=== PATIENT | female | born 1980 | race Caucasian/White ===

== ENCOUNTER 2017-11-18 07:02 | Emergency (ER) | payer OTHER ==
[2017-11-18 07:15] VITALS: RESP 16; TEMP 98.6
--- NOTE | 2017-11-18 07:34 | CPEKG ---
Heart Rate: 78 RR Interval: 769 P-R Interval: 123 QRSD Interval: 80 QT Interval: 388 QTC Interval: 442 P [place]: 0 QRS [place]: 68 T Wave [place]: 13 EKG Severity - NORMAL ECG - EKG Impression: SINUS RHYTHM Electronically Signed By: Cy Sosa 18-Nov-2017 14:47:04
--- NOTE | 2017-11-18 07:42 | EDPHY ---
HPI/HX/ROS/PE/MDM Narrative: CHIEF COMPLAINT: Chest/abdominal/back pain HPI: The patient is a 37 y/o female complaining of acute onset abdominal pain that woke her from sleep 3.5 hours ago. She says, "at 4 o'clock I woke up with really severe upper abdominal pain." Her pain then spread to her left anterior chest and then to her entire back. She could not find a comfortable position or identify any alleviating factors. Her pain was constant for two hours, sharp in quality and associated with mild dyspnea and nausea, but no vomiting. Pressure on her abdomen seemed to worsen her pain. She's had some reflux in the past and states her symptoms today feel different. Her pain has improved since arriving in the ED. She felt normal last night and ate a standard meal with a glass of wine. She denies sensation of esophageal foreign body since her meal. She has no personal history or history in a 1st degree relative of cardiac disease, gallbladder disease, or respiratory disease. No abdominal surgical history. REVIEW OF SYSTEMS: Aside from elements discussed in the HPI, a comprehensive 10-point review of systems was reviewed and is negative. PMH: Shoulder surgery, breast augmentation tonsillectomy FAMILY HISTORY: Grandmother had 12 heart attacks. SOCIAL HISTORY: Works as a realtor. Lives in [place]. , at bedside. PHYSICAL EXAM: General:Patient is alert, in no acute distress. ENT:Eyes are normal to inspection. ENT inspection normal. Neck: Normal inspection. Full range of motion. Respiratory:No respiratory distress. Breath sounds normal bilaterally. Cardiovascular: Regular rate and rhythm. Strong peripheral pulses. Normal cap refill. Abdomen:The abdomen has RLQ tenderness to palpation. There are no peritoneal signs. There are normal bowel sounds. Back: Normal to inspection. No tenderness to palpation. Skin: Normal color. No rash. Warm and dry. Extremities: Normal appearance. Full range of motion. Neuro: Oriented x3. Normal motor function. Normal sensory function. ED Course: This is a normally healthy 37 y/o female who presents with a 3.5-hour history of acute abdominal pain that woke her from sleep and now involves her chest and back. However, on exam she has RLQ tenderness and no epigastric tenderness or reproducible chest tenderness. Presentation could indicate gallbladder issue, reflux, or appendicitis. Cardiac etiology less likely as patient has no reported risk factors for cardiac event. Plan for IV, labs, UA, EKG, chest x- ray. I offered PO GI cocktail, but patient does not think her symptoms feel like reflux and declined it. 1L IV NS and 4mg IV Zofran administered. The 12 lead EKG was interpreted by myself. Sinus mechanism rate 78. See hard copy and/or "tracemaster" electronic copy for interpretation. 0748: HR 48, BP 82/40 after IV placement. RN reported vasovagal symptoms. Repeat EKG ordered. The 12 lead EKG was interpreted by myself. Sinus mechanism rate 56. See hard copy and/or "tracemaster" electronic copy for interpretation. 0800: BP and HR are trending towards initial readings. 0835: Reevaluated patient. She reports her symptoms have improved, but she continues to have tenderness in the RLQ. I've recommended a CT to evaluate for appendicitis or other intraabdominal process, which she agrees to. 0920: Abdominal CT shows small amount of fluid RUQ, normal appendix, constipation. Plan for RUQ US to evaluate gallbladder. UA and US are negative. MDM: This patient presents with atypical abdominal pain and tenderness. We performed an extensive workup, including CTAP, US and lab work, and no etiology for these symptoms was identified. I see no evidence of cholecystitis, bowel obstruction , appendicitis, diverticulitis, pancreatitis or GI bleed. Given negative workup , this may represent an ulcer or other GI issue - I think the next logical step would be outpatient GI consultation. On re-evaluation, patient's abdomen is benign, she is comfortable and her vitals are normal. She agrees with plan for discharge home in setting of strict return precautions. - Data Points Imaging Results: Imaging Impressions Chest X-Ray 11/18/17 07:37 Impression: Chest negative for acute abnormality. Abdomen CT 11/18/17 08:36 Impression: 1. Moderate stool in the colon 2. Trace free fluid near the liver with no definite etiology, of questionable clinical significance. 3. Additional findings as above. Findings discussed with Cy Sosa MD on 11/18/2017 at 9:19 a.m. Abdomen Ultrasound 11/18/17 09:23 Impression: Normal right upper quadrant ultrasound. Findings discussed with Cy Sosa MD at 9:59 hour, 11/18/2017. Imaging: Discussed imaging studies w/ director call Radiologist, I viewed and interpreted images myself Laboratory Results: Laboratory Results 11/18/17 07:30 11/18/17 07:30 11/18/17 11/18/17 11/18/17 09:21 07:30 07:30 WBC RBC Hgb Hct MCV MCH MCHC RDW Plt Count MPV Neut % (Auto) Lymph % (Auto) Porter % (Auto) Eos % (Auto) Baso % (Auto) Nucleat RBC Rel Count Absolute Neuts (auto) Absolute Lymphs (auto) Absolute Monos (auto) Absolute Eos (auto) Absolute Basos (auto) Absolute Nucleated RBC Immature Gran % Immature Gran # Sodium 142 mEq/L mEq/L (135-145) Potassium 4.5 mEq/L mEq/L (3.5-5.2) Chloride 103 mEq/L mEq/L (97-110) Carbon Dioxide 26 mEq/l mEq/l (22-31) Anion Gap 13 mEq/L mEq/L (8-16) BUN 21 mg/dL mg/dL (7-23) Creatinine 0.8 mg/dL mg/dL (0.6-1.0) Estimated GFR > 60 Glucose 80 mg/dL mg/dL (70-100) Calcium 9.7 mg/dL mg/dL (8.5-10.4) Total Bilirubin 0.7 mg/dL mg/dL (0.1-1.4) Conjugated Bilirubin 0.2 mg/dL mg/dL (0.0-0.5) Unconjugated Bilirubin 0.5 mg/dL mg/dL (0.0-1.1) AST 30 IU/L IU/L (14-46) ALT 48 IU/L IU/L (9-52) Alkaline Phosphatase 40 IU/L IU/L (38-126) Troponin I < 0.012 ng/mL ng/mL (0.000-0.034) Total Protein 7.3 g/dL g/dL (6.3-8.2) Albumin 4.6 g/dL g/dL (3.5-5.0) Lipase 79 IU/L IU/L (23-300) Beta HCG, Qual NEGATIVE Urine Color YELLOW Urine Appearance CLEAR Urine pH 8.0 H (5.0-7.5) Ur Specific [place] > 1.035 H (1.002-1.030) Urine Protein NEGATIVE (NEGATIVE) Urine Ketones NEGATIVE (NEGATIVE) Urine Blood NEGATIVE (NEGATIVE) Urine Nitrate NEGATIVE (NEGATIVE) Urine Bilirubin NEGATIVE (NEGATIVE) Urine Urobilinogen NEGATIVE EU EU (0.2-1.0) Ur Leukocyte Esterase NEGATIVE (NEGATIVE) Urine Glucose NEGATIVE (NEGATIVE) 11/18/17 07:30 WBC 6.98 10^3/uL 10^3/uL (3.80-9.50) RBC 4.62 10^6/uL 10^6/uL (4.18-5.33) Hgb 15.3 g/dL g/dL (12.6-16.3) Hct 43.2 % % (38.0-47.0) MCV 93.5 fL fL (81.5-99.8) MCH 33.1 pg pg (27.9-34.1) MCHC 35.4 g/dL g/dL (32.4-36.7) RDW 12.3 % % (11.5-15.2) Plt Count 299 10^3/uL 10^3/uL (150-400) MPV 9.4 fL fL (8.7-11.7) Neut % (Auto) 63.7 % % (39.3-74.2) Lymph % (Auto) 27.5 % % (15.0-45.0) Porter % (Auto) 7.0 % % (4.5-13.0) Eos % (Auto) 1.1 % % (0.6-7.6) Baso % (Auto) 0.4 % % (0.3-1.7) Nucleat RBC Rel Count 0.0 % % (0.0-0.2) Absolute Neuts (auto) 4.44 10^3/uL 10^3/uL (1.70-6.50) Absolute Lymphs (auto) 1.92 10^3/uL 10^3/uL (1.00-3.00) Absolute Monos (auto) 0.49 10^3/uL 10^3/uL (0.30-0.80) Absolute Eos (auto) 0.08 10^3/uL 10^3/uL (0.03-0.40) Absolute Basos (auto) 0.03 10^3/uL 10^3/uL (0.02-0.10) Absolute Nucleated RBC 0.00 10^3/uL 10^3/uL (0-0.01) Immature Gran % 0.3 % % (0.0-1.1) Immature Gran # 0.02 10^3/uL 10^3/uL (0.00-0.10) Sodium Potassium Chloride Carbon Dioxide Anion Gap BUN Creatinine Estimated GFR Glucose Calcium Total Bilirubin Conjugated Bilirubin Unconjugated Bilirubin AST ALT Alkaline Phosphatase Troponin I Total Protein Albumin Lipase Beta HCG, Qual Urine Color Urine Appearance Urine pH Ur Specific [place] Urine Protein Urine Ketones Urine Blood Urine Nitrate Urine Bilirubin Urine Urobilinogen Ur Leukocyte Esterase Urine Glucose Medications Given: Discontinued Medications Sodium Chloride (Ns) 1,000 mls @ 0 mls/hr IV ONCE ONE; Wide Open PRN Reason: Protocol Stop: 11/18/17 07:45 Last Admin: 11/18/17 07:46 Dose: 1,000 mls Ondansetron HCl (Zofran) 4 mg IVP EDNOW ONE Stop: 11/18/17 07:45 Last Admin: 11/18/17 07:48 Dose: 4 mg General Time Seen by Provider: 11/18/17 07:30 Initial Vital Signs: Initial Vital Signs Temperature (C) 37 C 11/18/17 07:11 Heart Rate 77 11/18/17 07:11 Respiratory Rate 16 11/18/17 07:11 Blood Pressure 127/72 H 11/18/17 07:11 O2 Sat (%) 97 11/18/17 07:11 O2 Delivery Mode Room Air Allergies/Adverse Reactions: No Known Allergies Allergy (Verified 11/18/17 07:10) Home Medications: Medication Instructions Recorded NK [No Known Home Meds] 11/18/17 Departure - Departure Disposition: Home, Routine, Self-Care Clinical Impression: Constipation, Abdominal pain Condition: Good Instructions: Constipation (ED), Acute Abdominal Pain (ED) Additional Instructions: 1. Take Prilosec as directed for the next six days. 2. Increase fluid and fiber intake for constipation. You can try an over-the- counter laxative like Miralax as well. 3. Follow up with bakery products checker in the next 2-3 days. I recommend calling today to schedule an appointment. Tell them you are an ER follow up patient. 4. Return to the ED for worsening of condition. Referrals: Javed Ashley MD [Medical Doctor] - As per Instructions Report Scribed for: Cy Sosa Report Scribed by: Venus Abdullahi Date of Report: 11/18/17 Time of Report: 07:48 Physician Review and Approval Statement: Portions of this note were transcribed by an ED scribe. I personally performed the history, physical exam, and medical decision making; and confirm the accuracy of the information in the transcribed note.
[2017-11-18] MEDS ORDERED: NS 1,000 ML IV ONE (07:44)
[2017-11-18] MEDS ORDERED: ONDANSETRON 4 MG/2 ML VIAL IVP ONE (07:44)
[2017-11-18 08:01] VITALS: O2SAT 98
[2017-11-18 08:09] LABS: PLATELET COUNT 299 10^3/uL (150-400)
[2017-11-18] MEDS ORDERED: IOPAMIDOL (ISOVUE-300) 100 ML BTL ONE (08:38)
--- NOTE | 2017-11-18 10:04 | CPEKG ---
Heart Rate: 56 RR Interval: 1071 P-R Interval: 128 QRSD Interval: 72 QT Interval: 460 QTC Interval: 444 P [place]: -11 QRS [place]: 73 T Wave [place]: 44 EKG Severity - NORMAL ECG - EKG Impression: SINUS RHYTHM Electronically Signed By: Cy Sosa 18-Nov-2017 14:46:56
[2017-11-18 10:28] VITALS: BP 119/75; PULSE 76
== END 2017-11-18 10:36 | disposition home or self-care (01) ==
DX: K59.00 Constipation, unspecified (principal); E86.9 Volume depletion, unspecified
CPT/HCPCS: 96374; J2405; Q9967

== ENCOUNTER → 2018-04-21 | Outpatient (CLI) | payer OTHER | LOC: BMCIMAGING 13:59 | PROVIDERS: ATTEND Podiatrist Foot & Ankle Surgery | DX: M20.11 Hallux valgus (acquired), right foot (principal); M20.12 Hallux valgus (acquired), left foot ==

== ENCOUNTER → 2018-08-16 | Outpatient (CLI) | payer OTHER | LOC: BMCIMAGING 10:31 | PROVIDERS: ATTEND Podiatrist Foot & Ankle Surgery | DX: Z09 Encounter for follow-up examination after completed treatment for conditions other than malignant neoplasm (principal); Z98.890 Other specified postprocedural states ==

== ENCOUNTER → 2018-09-20 | Outpatient (CLI) | payer OTHER | LOC: BMCIMAGING 10:26 | PROVIDERS: ATTEND Podiatrist Foot & Ankle Surgery | DX: Z98.890 Other specified postprocedural states (principal) ==

== ENCOUNTER → 2018-10-12 | Outpatient (CLI) | payer OTHER | LOC: BMCIMAGING 14:34 | PROVIDERS: ATTEND Podiatrist Foot & Ankle Surgery | DX: Z98.890 Other specified postprocedural states (principal) ==

== ENCOUNTER → 2018-11-22 | Outpatient (CLI) | payer OTHER | LOC: BMCIMAGING 09:16 | PROVIDERS: ATTEND Podiatrist Foot & Ankle Surgery | DX: S92.311D Displaced fracture of first metatarsal bone, right foot, subsequent encounter for fracture with routine healing (principal) ==

== ENCOUNTER → 2019-03-07 | Outpatient (CLI) | payer OTHER | LOC: BMCIMAGING 10:28 | PROVIDERS: ATTEND Podiatrist Foot & Ankle Surgery | DX: Z09 Encounter for follow-up examination after completed treatment for conditions other than malignant neoplasm (principal); Z98.890 Other specified postprocedural states ==

== ENCOUNTER → 2019-03-14 | Outpatient (CLI) | payer OTHER | LOC: BMCIMAGING 14:25 | PROVIDERS: ATTEND Family Medicine | DX: S69.92XA Unspecified injury of left wrist, hand and finger(s), initial encounter (principal) ==